=== PATIENT | male | born 1960 | race Caucasian/White ===

== ENCOUNTER → 2019-05-24 | Outpatient (REF) | payer OTHER, SELFPAY ==
[2019-05-24 15:52] LABS: BASO # 0.1 10^3/uL (0.0-0.2); BASO % 0.5 % (0.0-1.0); EOS # 0.5 10^3/uL (0.0-0.5); HEMATOCRIT 31.7 % (42.0-52.0); HEMOGLOBIN 10.2 g/dl (13.5-17.5); LYMPH # 4.4 10^3/uL (1.5-5.0); LYMPH % 38.7 % (24.0-44.0); MEAN CORPUSCULAR HEMOGLOBIN 32.2 pg (27.0-33.0); MEAN CORPUSCULAR HGB CONC 32.2 g/dl (32.0-36.5); MONO # 0.8 10^3/uL (0.0-0.8); MONO % 7.4 % (0.0-5.0); NEUTROPHILS # 5.6 10^3/uL (1.5-8.5); NEUTROPHILS % 49.1 % (36.0-66.0); PLATELET COUNT, AUTOMATED 381 10^3/uL (150-450); RED BLOOD COUNT 3.17 10^6/uL (4.30-6.10); WHITE BLOOD COUNT 11.3 10^3/uL (4.0-10.0)
[2019-05-24 16:22] LABS: ALBUMIN 3.3 GM/DL (3.2-5.2); ALT/SGPT 19 U/L (12-78); BILIRUBIN,TOTAL 0.2 MG/DL (0.2-1.0); BLOOD UREA NITROGEN 12 MG/DL (7-18); CALCIUM LEVEL 9.2 MG/DL (8.5-10.1); CARBON DIOXIDE LEVEL 31 MEQ/L (21-32); CHLORIDE LEVEL 101 MEQ/L (98-107); CHOLESTEROL LEVEL 217 MG/DL (<200); CHOLESTEROL RISK RATIO 4.931 (<5); CREATININE FOR GFR 0.84 MG/DL (0.70-1.30); FREE T4 0.88 NG/DL (0.76-1.46); GLOMERULAR FILTRATION RATE > 60.0 (>56); GLUCOSE, FASTING 71 MG/DL (70-100); HDL CHOLESTEROL 44 MG/DL (>40); LDL CHOLESTEROL 121 MG/DL (<100); NON-HDL-C 173 MG/DL; POTASSIUM SERUM 4.7 MEQ/L (3.5-5.1); SODIUM LEVEL 136 MEQ/L (136-145); THYROID STIMULATING HORMONE 0.915 uIU/ML (0.358-3.740); TOTAL PROTEIN 8.2 GM/DL (6.4-8.2); TRIGLYCERIDES LEVEL 261 MG/DL (<150)
== END ==
LOC: M SHH 15:42
PROVIDERS: ATTEND Internal Medicine
DX: E78.2 Mixed hyperlipidemia (principal)

== ENCOUNTER 2020-08-23 21:46 | Emergency (ER) | payer OTHER, MEDICARE, MEDICAID ==
[~2020-08-23] VITALS: Ht 157.5 cm; Wt 51.9 kg
[2020-08-23] MEDS ORDERED: METO1TAB32 PO (22:19)
[2020-08-23] MEDS ORDERED: CYCL-707 PO (22:19)
[2020-08-23] MEDS ORDERED: OMEP-218 PO (22:19)
[2020-08-23] MEDS ORDERED: TRAZ-252 PO (22:19)
[2020-08-23] MEDS ORDERED: CALC1CAP PO (22:19)
[2020-08-23] MEDS ORDERED: GABA-282 PO (22:19)
[2020-08-23] MEDS ORDERED: OXYC10TA3 PO (22:19)
--- NOTE | 2020-08-24 00:42 | REPVR ---
PROCEDURE INFORMATION: Exam: XR Left Wrist Exam date and time: 08/23/2020 11:19 PM Age: 59 years old Clinical indication: Other: [place] TECHNIQUE: Imaging protocol: XR Left wrist. Views: 3 or more views. COMPARISON: No relevant prior studies available. FINDINGS: Bones/joints: Lateral view suggests a dorsal 2 mm osseous fragment which may arise from the dorsal triquetrum. No other evidence of fracture; Carpal bones align normally. No bone lesion. Scaphoid appears intact. Joint spaces are well-maintained for age. Soft tissues: Dorsal soft tissue swelling is present. IMPRESSION: Suspected acute dorsal triquetrum chip fracture with overlying dorsal soft tissue swelling. No other fracture or osseous deformity Electronically signed by: Mario Moore On 08/24/2020 00:41:32 AM
[2020-08-24 00:51] VITALS: BP 121/67
== END 2020-08-24 00:52 | disposition home or self-care (01) ==
LOC: M ED 21:46
DX: S50.12XA Contusion of left forearm, initial encounter (principal); W18.49XA Other slipping, tripping and stumbling without falling, initial encounter; Y92.009 Unspecified place in unspecified non-institutional (private) residence as the place of occurrence of the external cause; Y93.9 Activity, unspecified; Y99.9 Unspecified external cause status; I10 Essential (primary) hypertension; F17.200 Nicotine dependence, unspecified, uncomplicated